=== PATIENT | male | born 1980 | race Caucasian/White ===

== ENCOUNTER 2018-11-05 18:28 | Inpatient (IN) | payer MEDICAID ==
[~2018-11-05] VITALS: Ht 170.2 cm; Wt 78.9 kg
[2018-11-05] MEDS ORDERED: SODIUM CHLORIDE 0.9% 1,000 ML IV ONE (19:28)
[2018-11-05] MEDS ORDERED: MAGNESIUM/ALUMINUM HYDROXIDE/SIMETHICONE 30ML UDC PO ONE (19:30)
[2018-11-05] MEDS ORDERED: VISCOUS LIDOCAINE 2% 15 ML UDC PO ONE (19:30)
[2018-11-05 20:50] LABS: BASOPHILS % 0.4 % (0.0-2.0); CHLORIDE 109 mEq/L (98-107); HEMATOCRIT. 33.6 % (42.0-52.0); HEMOGLOBIN. 10.8 g/dL (14.0-18.0); LYMPHOCYTES % 12.5 % (20.0-50.0); MEAN CORPUSCULAR HEMOGLOBIN 27.3 pg (28.0-32.0); MEAN CORPUSCULAR VOLUME 85.3 fL (80.0-94.0); MEAN PLATELET VOLUME 6.8 fl (7.4-10.4); MONOCYTES % 8.6 % (2.0-8.0); NEUTROPHILS % 76.5 % (40.0-76.0); PLATELET 497 x1000/uL (130-400); RED BLOOD CELL COUNT 3.94 mill/uL (4.7-6.1); RED CELL DISTRIBUTION WIDTH 16.7 % (11.6-14.6)
[2018-11-05 20:56] LABS: ETHANOL BLOOD < 10 mg/dL
[2018-11-05] MEDS ORDERED: KETOROLAC 30MG/ML VIAL IV ONE (23:00)
[2018-11-05 23:08] LABS: *AMPHETAMINES SCREEN URINE NEGATIVE (NEGATIVE); *BARBITURATES SCREEN URINE NEGATIVE (NEGATIVE); *COCAINE SCREEN URINE NEGATIVE (NEGATIVE)
[2018-11-05 23:09] LABS: *BENZODIAZEPINES SCREEN URINE NEGATIVE (NEGATIVE); CANNABINOID URINE SCREEN PRESUMTIVE POSITIVE (NEGATIVE); METHADONE URINE SCREEN NEGATIVE (NEGATIVE); OPIATES URINE SCREEN NEGATIVE (NEGATIVE); PHENCYCLIDINE URINE SCREEN NEGATIVE (NEGATIVE)
[2018-11-06] MEDS ORDERED: IOHEXOL-350 100 ML BOTTLE ONE (01:37)
[2018-11-06 03:22] VITALS: BP 96/59
[2018-11-06] MEDS ORDERED: GUAIFENESIN 200MG/10ML SUGAR FREE UDC PO PRN (06:15)
[2018-11-06] MEDS ORDERED: CLONIDINE 0.1MG TABLET PO PRN (06:15)
[2018-11-06] MEDS ORDERED: DOCUSATE SODIUM 100MG CAPSULE PO PRN (06:15)
[2018-11-06] MEDS ORDERED: MAGNESIUM/ALUMINUM HYDROXIDE/SIMETHICONE 30ML UDC PO PRN (06:15)
[2018-11-06] MEDS ORDERED: HYDROCODONE/ACETAMINOPHEN 5/325MG TABLET PO PRN (06:15)
[2018-11-06] MEDS ORDERED: ACETAMINOPHEN 325MG TABLET PO PRN (06:15)
[2018-11-06] MEDS ORDERED: ONDANSETRON HCL 4MG/2ML INJ IV PRN (06:15)
[2018-11-06] MEDS ORDERED: NA PHOS,M-B/NA PHOS,DI-BA ENEMA 118ML PR PRN (06:15)
[2018-11-06] MEDS ORDERED: LORAZEPAM 2MG/ML CPJ IV PRN (06:15)
[2018-11-06] MEDS ORDERED: DIPHENHYDRAMINE 50MG/ML VIAL IV PRN (06:15)
[2018-11-06] MEDS ORDERED: HYDROMORPHONE HCL/PF 2MG/ML CPJ IV PRN (06:15)
[2018-11-06] MEDS ORDERED: IPRATROPIUM/ALBUTEROL 0.5-3(2.5)MG/3ML NEB INH PRN (06:15)
[2018-11-06 08:00] VITALS: BP 110/62
[2018-11-06] MEDS ORDERED: SODIUM CHLORIDE 0.9% 1,000 ML IV SCH (08:00)
[2018-11-06] MEDS: ENOXAPARIN 40MG/0.4ML SYR SUBCUT SCH (09:55)
[2018-11-06] MEDS: ASPIRIN 81MG EC TABLET PO SCH (09:55)
[2018-11-06 09:56] VITALS: BP 120/76
[2018-11-06 10:08] LABS: CHLORIDE 110 mEq/L (98-107)
[2018-11-06 10:19] LABS: T4 FREE 0.88 ng/dL (0.76-1.46)
[2018-11-06 12:00] VITALS: BP 118/79
[2018-11-06 16:00] VITALS: BP 125/92
[2018-11-06 17:57] LABS: CREATINE KINASE MB FRACTION 1.4 ng/mL (0.5-3.6)
[2018-11-06 20:00] VITALS: BP 113/59
[2018-11-07] VITALS: BP 124/76
[2018-11-07 04:00] VITALS: BP 127/70
[2018-11-07 06:21] LABS: CHLORIDE 110 mEq/L (98-107)
[2018-11-07 06:22] LABS: BASOPHILS % 0.5 % (0.0-2.0); EOSINOPHILS % 4.6 % (0.0-5.0); HEMATOCRIT. 33.4 % (42.0-52.0); HEMOGLOBIN. 10.8 g/dL (14.0-18.0); LYMPHOCYTES % 17.3 % (20.0-50.0); MEAN CORPUSCULAR HEMOGLOBIN 27.7 pg (28.0-32.0); MEAN CORPUSCULAR VOLUME 85.8 fL (80.0-94.0); MEAN PLATELET VOLUME 6.9 fl (7.4-10.4); MONOCYTES % 9.4 % (2.0-8.0); NEUTROPHILS % 68.2 % (40.0-76.0); PLATELET 470 x1000/uL (130-400); RED BLOOD CELL COUNT 3.89 mill/uL (4.7-6.1); RED CELL DISTRIBUTION WIDTH 16.6 % (11.6-14.6)
[2018-11-07 06:30] LABS: HDL CHOLESTEROL 32 mg/dL (40-59)
[2018-11-07 06:31] LABS: LDL CHOLESTEROL 147 mg/dL (5-100)
[2018-11-07 06:32] LABS: CREATINE KINASE 285 IU/L (39-308)
[2018-11-07 06:36] LABS: CREATINE KINASE MB FRACTION < 1.0 ng/mL (0.5-3.6)
[2018-11-07 07:58] VITALS: BP 115/69
[2018-11-07 08:00] VITALS: BP 115/69
[2018-11-07] MEDS ORDERED: REGADENOSON 0.4 MG/5 ML IV NR (08:00)
[2018-11-07] MEDS: ASPIRIN 81MG EC TABLET PO SCH (09:00)
[2018-11-07] MEDS: ENOXAPARIN 40MG/0.4ML SYR SUBCUT SCH (09:00)
[2018-11-07] MEDS ORDERED: REGADENOSON 0.4 MG/5 ML IV ONE (09:09)
== END 2018-11-07 10:30 | disposition home or self-care (01) | DRG 203 ==
LOC: ER 18:28 → 8WST 23:40 → ENRESERV 11-06 01:57
PROVIDERS: ADMIT Internal Medicine; ATTEND Internal Medicine
DX: M94.0 Chondrocostal junction syndrome [Tietze] (principal); I10 Essential (primary) hypertension; K21.9 Gastro-esophageal reflux disease without esophagitis; Z87.891 Personal history of nicotine dependence
CPT/HCPCS: 36415; 71045; 71275; 78452; 80048; 80061; 80305; 80320; 82550; 82553; 83036; 83880; 84439; 84443; 84484; 85379; 93005; 93017; 93306; 93970; 96361; 96374; 99285; A9500; J1170; J1650; J1885; J2785; J7030; Q9967; G0480